=== PATIENT | male | born 1975 | race Caucasian/White ===

== ENCOUNTER → 2022-02-11 09:07 | Outpatient (CLI) | payer OTHER, SELFPAY ==
[2022-02-11 10:56] LABS: COVID19 -Nasal RAPID Negative (Negative)
== END ==
PROVIDERS: PCP Student in an Organized Health Care Education/Training Program; Visit Provider Surgery
DX: Z01.812 Encounter for preprocedural laboratory examination (principal); Z20.822 Contact with and (suspected) exposure to COVID-19
CPT/HCPCS: 87635; C9803

== ENCOUNTER 2022-02-14 08:25 | Day surgery (SDC) | payer OTHER, SELFPAY ==
--- NOTE | 2022-02-14 | PATH_ITS ---
[facility] Accession Number: [id number] . 01 Material submitted: . rectum - RECTUM POLYP . 01 Diagnosis: Rectum, Polyp, Biopsy: Hyperplastic polyp. [facility] 02/16/2022 1607 Local . 01 Electronically signed: . Amalia Gaffney MD, Pathologist NPI- [id number] . 01 Gross description: . RECTUM POLYP: Received in formalin is 1 fragment(s) of nielsen, soft tissue measuring 0.3 x 0.2 x 0.2 cm submitted entirely in 1 cassette(s) /BARRY 02/15/2022 0124 Local . 01 Pathologist provided ICD-10: K62.1 . 01 CPT . 280810 Specimen Comment: A courtesy copy of this report has been sent to [phone] Performed at: 01 [facility] [address] [place] [address] [id number] MD Osvaldo Abdi MD Phone: [phone]
[2022-02-14 08:43] VITALS: BMI 30.8
[2022-02-14 08:56] VITALS: BP 131/84; PULSE 95; RESP 18; TEMP 36.7; O2SAT 98
[2022-02-14] MEDS: SODIUM CHLORIDE 0.9% 1,000 ML 84 ML IV (08:56)
--- NOTE | 2022-02-14 09:05 | PM.HP.1 ---
History of Present Illness History of Present Illness Date Patient Seen: 02/14/22 Time Patient Seen: 09:05 Chief complaint: SDC Narrative: I reviewed the recent office note December 02. No significant changes. He is here for colon cancer screening today. Patient History Family & Social History Social History: household members spouse Tobacco & Substance use: Smoking Status Current every day smoker alcohol intake never Substance Use Type does not use Meds Home Medications and Allergies Home Medications Medication Instructions Recorded Confirmed Type cholecalciferol (vitamin D3) 25 25 mcg PO DAILY 02/14/22 02/14/22 History mcg (1,000 unit) capsule (Vitamin D3) cinnamon bark 500 mg capsule 500 mg PO DAILY 02/14/22 02/14/22 History (Cinnamon) meloxicam 15 mg tablet 15 mg PO BID 02/14/22 02/14/22 History potassium chloride 20 mEq 20 meq PO DAILY 02/14/22 02/14/22 History tablet,extended release turmeric root extract 500 mg 500 mg PO DAILY 02/14/22 02/14/22 History capsule Allergies Allergy/AdvReac Type Severity Reaction Status Date / Time No Known Drug Allergies Allergy Verified 02/14/22 08:41 Review of Systems Review of Systems ROS: Yes All systems reviewed with the patient and are negative except as otherwise documented Exam Vital Signs (past 8 hours): - 02/14/22 08:56 Temperature 98.1 F Pulse Rate 95 H Respiratory Rate 18 Blood Pressure 131/84 Pulse Oximetry 98 Oxygen Delivery Method Room Air Oxygen Delivery Method Room Air Const General: cooperative HENMT Head: normal to inspection Eyes General: appearance normal, both eyes and all related structures Neck Neck: normal visual inspection Chest Chest: normal inspection of the chest Resp Effort & Inspection: normal respiratory effort Cardio Rate: regular rate GI Inspection: normal to inspection Skin General: no rashes or lesions noted Neuro General: patient alert and patient awake Extrem General: normal to inspection and no pedal edema Psych Appearance: grossly normal Assessment & Plan Assessment & Plan narrative: 47-year-old male indicated for colon cancer screening. Colonoscopy is planned for today. Time Spent With Patient Critical Care time: I spent a total of [] minutes of critical care time on this patient's care today; this time is exclusive of procedural time.
--- NOTE | 2022-02-14 09:07 | PM.PREOP ---
Pre-operative Note COVID-19 COVID-19 status: Negative Result date/Date tested (Pos, Neg/Pending): 02/11/22 Criteria for continued procedure: Possibility delay results in more complex future surgery or treatment Interval Note History & Physical reviewed/Exam performed by Physician: Yes Changes to H&P: No ASA Class (for procedural sedation): I
--- NOTE | 2022-02-14 10:03 | P.OP.COLON_ITS ---
Operative Date/Time/Diagnoses Date of procedure: 02/14/22 Time of procedure: 10:04 Pre-op diagnosis: Colon cancer screening Post-op diagnosis: same Procedure & Clinicians Study performed: Colonoscopy with cold snare polypectomy Same procedure as scheduled: Yes Indications: Colon cancer screening Surgeon: Wilfredo Garza Procedure Notes SCOAP/Timeout: Done Procedure in detail: After the risks and benefits were explained, written and verbal informed consent was obtained. The patient was brought into the procedure room and placed into the left lateral decubitus position. Please see nurse auto service station attendant note for sedation details.. Digital rectal examination was accomplished. The scope was introduced into the patient and advanced under direct visualization to the cecum as identified by the appendiceal orifice and ileocecal valve. The scope was slowly withdrawn to carefully examine the mucosa for any defects or lesions. Comprehensive imaging was accomplished throughout the rectum including the dentate line. The colon was decompressed, the scope was then removed from the patient who tolerated the procedure well. Bowel prep adequate Adult colonoscope Scope withdrawal time: 11 minutes Sedation minutes: 21 Complications: none Impression: There was a small 5 mm polyp in the rectum that was removed with cold snare. This is probably going to glove turner and former to be a hyperplastic polyp. No additional pathology was appreciated throughout the colon. Retroflexed views disclosed moderately engorged internal hemorrhoids grade 2. Endoscopic diagnosis 1. Diminutive rectal polyp 2. Grade 2 hemorrhoids Post-procedure Plan for aftercare: 1. Await histopathology. 2. Repeat colonoscopy will likely be suggested for 10 years. Disposition: PACU
[2022-02-14 10:05] VITALS: BP 100/55; PULSE 84; RESP 15; TEMP 36.8; O2SAT 97
[2022-02-14 10:10] VITALS: BP 89/58; PULSE 11; RESP 11; O2SAT 99
[2022-02-14 10:15] VITALS: BP 92/63; PULSE 70; PULSE 78; RESP 11; RESP 12; O2SAT 98; O2SAT 99
[2022-02-14 10:20] VITALS: BP 96/58; PULSE 68; RESP 12; TEMP 36.6; O2SAT 100
--- NOTE | 2022-02-14 10:43 | SUR.PHASEII ---
Patient ambulated to wheelchair without difficulty. Tolerated PO. Provided written and verbal discharge instructions. Patient stated understanding.
== END 2022-02-14 10:39 | disposition home or self-care (01) ==
PROVIDERS: PCP Student in an Organized Health Care Education/Training Program; Referring Provider Internal Medicine Gastroenterology; Visit Provider Internal Medicine Gastroenterology
PROC: 0DJD8ZZ Inspection of Lower Intestinal Tract, Via Natural or Artificial Opening Endoscopic (ICD-10-PCS; CPT 45378; principal; 2022-02-14 09:30)
DX: Z12.11 Encounter for screening for malignant neoplasm of colon (principal); K64.1 Second degree hemorrhoids; K62.1 Rectal polyp
CPT/HCPCS: 45385; J2704